=== PATIENT | male | born 1985 | race Caucasian/White ===

== ENCOUNTER 2017-05-19 21:13 | Emergency (ER) | payer MEDICARE, OTHER ==
[~2017-05-19] VITALS: Ht 170.2 cm; Wt 70.3 kg
--- NOTE | ~2017-05-19 | CR181 ---
[facility]. [facility] A Service of [facility] & [facility] / [facility] RADIOLOGY TEXT RESULTS PATIENT: ALBERT HERNANDEZ LOCATION: SED : 83 UNIT #: [id number] AGE: [address]: Barbra Hollis SEX: M ORDER DR: [id number] [address] [address] [id number] MR#: [id number] Acc #: [id number] NAME: ALBERT HERNANDEZ. : 1985 SEX: M STUDY DATE/TIME: 05/19/2017 21:47 UNIT: SED ROOM: STUDY DESCRIPTION: CR Lumbar Spine 2 or 3 Views Attending Physician: Barbra Hollis Pa-C Ordering Physician: Barbra Hollis Pa-C Primary Care Physician: Burak Sexton M.D. MEDICAL IMAGING REPORT This report is preliminary unless electronic signature is present. EXAM 3 views of the lumbar spine. DATE: 05/19/2017 HISTORY Low back pain for 2 months intermittently. Fell out of a truck. FINDINGS AP and lateral projections of the lumbar segment show good mineralization of both anterior and posterior elements. They are all anatomically normal without indication of fracture, dislocation, or malignant change of a sclerotic or lytic type. There is no congenital defect noted. The sacroiliac joints are normal. IMPRESSION Normal lumbar spine. Dictated by... Bailey Dyer M.D. THIS IS AN ELECTRONICALLY VERIFIED REPORT Bailey Dyer M.D. at 05/20/2017 9:56 AM VU/kike TD: 05/20/2017 04:59 JOB #: [id number] MEDICAL IMAGING REPORT Page 1 of 1
[~2017-05-19 21:13] MED LIST: ALPRAZOLAM PO; AMOXICILLIN500 M1 PO; AUGMENTIN PO; BACTRIM DS TABL1 TAB PO; DAYQUIL; DIAZEPAM PO; FLEXERIL PO; KEPPRA500 M1 PO; KEPPRA500 M2 PO; KLONOPIN PO; LOMOTIL TABLET1 TAB PO; LORTAB 10-5001 EACH PO; LORTAB 10/500 T1 TAB PO; MIRALAX17 GM PO; NAPROSYN500 MG PO; PATIENT'S PHARMACY; PEN VK; PHENERGAN PO; PHENERGAN25 MG PO; PROZAC10 MG PO; SYNTHROID PO; VICODIN PO; VOLTAREN75 MG PO; ZOFRANODT PO; ZYPREXA PO
== END 2017-05-19 22:51 | disposition home or self-care (01) ==
LOC: SED 21:13
DX: M54.42 Lumbago with sciatica, left side (principal); Z88.2 Allergy status to sulfonamides
CPT/HCPCS: 72100; 99283